=== PATIENT | female | born 1965 | race Caucasian/White ===

== ENCOUNTER 2017-12-17 14:44 | Emergency (ER) | payer OTHER ==
--- NOTE | 2017-12-17 16:48 | US ---
EXAMINATION TYPE: US venous doppler duplex LE LT DATE OF EXAM: 12/17/2017 4:29 PM COMPARISON: NONE CLINICAL HISTORY: Pain. Pt states left leg swelling x 3 days SIDE PERFORMED: Left TECHNIQUE: The lower extremity deep venous system is examined utilizing real time linear array sonog gray with graded compression, doppler sonography and color-flow sonography. VESSELS IMAGED: External Iliac Vein (EIV) Common Femoral Vein Deep Femoral Vein Greater Saphenous Vein * Femoral Vein Popliteal Vein Small Saphenous Vein * Proximal Calf Veins (* superficial vessels) Grayscale, color doppler, spectral doppler imaging performed of the deep veins of the lower extremiti es. There is normal flow, compressibility, vascular waveforms. Left Leg: Negative for DVT IMPRESSION: No evident deep venous thrombosis at or above the left knee, follow-up as indicated.
--- NOTE | 2017-12-17 17:37 | ED ---
General Adult HPI - General Chief complaint: Extremity Problem,Nontraumatic Stated complaint: water retention in legs Time Seen by Provider: 12/17/17 16:51 Source: patient, RN notes reviewed Mode of arrival: ambulatory Limitations: no limitations - History of Present Illness Initial comments: 52-year-old female presents to the emergency department for a chief complaint of leg swelling 3 days. Patient states she noticed the swelling in her left leg which she states is worse than her right leg. Patient does state that she has some swelling in her right leg however. Patient states that she gained 10 pounds since last week. Patient denies any shortness of breath or chest pain. Patient denies any pain in the lower extremities. Patient states she just feels a lot of pressure in her left foot when she stands. Patient denies pain when walking. Patient denies any injuries to the lower extremities. Patient states she has been trying to keep them elevated for the past couple of days and denies standing for long periods. Patient has no other complaints at this time including shortness of breath, chest pain, abdominal pain, nausea or vomiting, headache, or visual changes. - Related Data Home Medications Medication Instructions Recorded Confirmed ALPRAZolam [Xanax] 1 mg PO BID 12/17/17 12/17/17 Dicyclomine [Bentyl] 10 mg PO TID PRN 12/17/17 12/17/17 EPINEPHrine (Auto Inject) [Epipen] 0.3 mg IM ONCE PRN 12/17/17 12/17/17 HYDROcodone/APAP 7.5-325MG [[place] 1 tab PO BID PRN 12/17/17 12/17/17 7.5-325] Allergies Allergy/AdvReac Type Severity Reaction Status Date / Time Iodinated Contrast- Oral and Allergy Anaphylaxis Verified 12/17/17 16:56 IV Dye shellfish derived [Shellfish] Allergy Anaphylaxis Verified 12/17/17 16:56 Review of Systems ROS Statement: Those systems with pertinent positive or pertinent negative responses have been documented in the HPI. ROS Other: All systems not noted in ROS Statement are negative. Past Medical History Past Medical History: Osteoarthritis (OA) Additional Past Medical History / Comment(s): IBS History of Any Multi-Drug Resistant Organisms: None Reported Past Surgical History: Tubal Ligation Past Psychological History: Anxiety Smoking Status: Former smoker Past Alcohol Use History: Occasional Past Drug Use History: None Reported General Exam Limitations: no limitations General appearance: alert, in no apparent distress Head exam: Present: atraumatic, normocephalic, normal inspection Eye exam: Present: normal appearance. Absent: scleral icterus, conjunctival injection ENT exam: Present: normal exam, normal oropharynx, mucous membranes moist, TM's normal bilaterally, normal external ear exam Neck exam: Present: normal inspection, full ROM. Absent: tenderness, meningismus, lymphadenopathy Respiratory exam: Present: normal lung sounds bilaterally. Absent: respiratory distress, wheezes, rales, rhonchi, stridor Cardiovascular Exam: Present: regular rate, normal rhythm, normal heart sounds. Absent: systolic murmur, diastolic murmur, rubs, gallop, clicks GI/Abdominal exam: Present: soft, normal bowel sounds. Absent: distended, tenderness, guarding, rebound, rigid Extremities exam: Present: full ROM (full ROM in lower extremities bilat), normal capillary refill (cap refull < 2 seconds in lower ext bilat, pedal pulses 2+), pedal edema (nonpitting edema present), other (sensation intact in BLE). Absent: tenderness (Tenderness in the left lateral malleolus. no tenderness in lower extremities elsewhere), calf tenderness (neg timmy sign, no calf tenderness or warmth bilat) Back exam: Absent: CVA tenderness (R), CVA tenderness (L) Neurological exam: Present: alert, oriented X3, CN II-XII intact Psychiatric exam: Present: normal affect, normal mood Course Vital Signs 12/17/17 12/17/17 14:51 18:39 Temperature 97.8 F 97.6 F Pulse Rate 99 85 Respiratory 20 18 Rate Blood Pressure 118/79 128/70 O2 Sat by Pulse 100 97 Oximetry EKG Findings - EKG Comments: EKG Findings:: Normal sinus rhythm, ventricular rate 82, SD interval 136, QRS ratio 80, no evidence of ST elevation or depression Medical Decision Making - Medical Decision Making 52-year-old female presents to the emergency department for a chief complaint of bilateral leg swelling, worse in the left leg for 3 days. Patient states she gained 10 pounds in the past week. Patient denies any shortness of breath or chest pain. Patient denies a history of kidney disease. On exam patient does have mild edema in the left ankle without pitting evident. There is also some mild edema in the right ankle somewhat less than the left. Patient is able to walk on lower extremities without any difficulty. Patient denies any pain in the lower extremities whatsoever. Neurovascular intact. CBC and CMP unremarkable. Negative cardiac profile. Troponin less than 0.012. BNP 214. GFR 90 with a creatinine of 0.76. Patients protein is mildly decreased. Ultrasound negative for DVT in the left lower extremity. EKG shows a normal sinus rhythm without evidence of ST elevation or depression. Patient can increase protein intake and follow up with primary care in 1-2 days. Patient aware to return to the emergency Department if she has any worsening symptoms. - Lab Data Result diagrams: 12/17/17 18:06 12/17/17 18:06 Lab Results 12/17/17 12/17/17 12/17/17 Range/Units 18:06 18:06 18:06 WBC 7.6 (3.8-10.6) k/uL RBC 4.59 (3.80-5.40) m/uL Hgb 14.0 (11.4-16.0) gm/dL Hct 44.0 (34.0-46.0) % MCV 95.8 (80.0-100.0) fL MCH 30.5 (25.0-35.0) pg MCHC 31.8 (31.0-37.0) g/dL RDW 13.4 (11.5-15.5) % Plt Count 309 (150-450) k/uL Neutrophils % 59 % Lymphocytes % 28 % Monocytes % 5 % Eosinophils % 6 % Basophils % 1 % Neutrophils # 4.5 (1.3-7.7) k/uL Lymphocytes # 2.1 (1.0-4.8) k/uL Monocytes # 0.4 (0-1.0) k/uL Eosinophils # 0.4 (0-0.7) k/uL Basophils # 0.1 (0-0.2) k/uL PT (9.0-12.0) sec INR (<1.2) APTT (22.0-30.0) sec Sodium 138 (137-145) mmol/L Potassium 4.1 (3.5-5.1) mmol/L Chloride 109 H (98-107) mmol/L Carbon Dioxide 26 (22-30) mmol/L Anion Gap 3 mmol/L BUN 14 (7-17) mg/dL Creatinine 0.76 (0.52-1.04) mg/dL Est GFR (CKD-EPI)AfAm >90 (>60 ml/min/1.73 sqM) Est GFR (CKD-EPI)NonAf 90 (>60 ml/min/1.73 sqM) Glucose 82 (74-99) mg/dL Calcium 8.9 (8.4-10.2) mg/dL Magnesium 2.1 (1.6-2.3) mg/dL Total Bilirubin 0.2 (0.2-1.3) mg/dL AST 24 (14-36) U/L ALT 31 (9-52) U/L Alkaline Phosphatase 63 (38-126) U/L Total Creatine Kinase (30-135) U/L CK-MB (CK-2) (0.0-2.4) ng/mL CK-MB (CK-2) Rel Index Troponin I (0.000-0.034) ng/mL NT-Pro-B Natriuret Pep 214 pg/mL Total Protein 5.4 L (6.3-8.2) g/dL Albumin 3.3 L (3.5-5.0) g/dL Amylase 75 (30-110) U/L Lipase 80 (23-300) U/L 12/17/17 12/17/17 Range/Units 18:06 18:06 WBC (3.8-10.6) k/uL RBC (3.80-5.40) m/uL Hgb (11.4-16.0) gm/dL Hct (34.0-46.0) % MCV (80.0-100.0) fL MCH (25.0-35.0) pg MCHC (31.0-37.0) g/dL RDW (11.5-15.5) % Plt Count (150-450) k/uL Neutrophils % % Lymphocytes % % Monocytes % % Eosinophils % % Basophils % % Neutrophils # (1.3-7.7) k/uL Lymphocytes # (1.0-4.8) k/uL Monocytes # (0-1.0) k/uL Eosinophils # (0-0.7) k/uL Basophils # (0-0.2) k/uL PT 9.3 (9.0-12.0) sec INR 0.9 (<1.2) APTT 20.8 L (22.0-30.0) sec Sodium (137-145) mmol/L Potassium (3.5-5.1) mmol/L Chloride (98-107) mmol/L Carbon Dioxide (22-30) mmol/L Anion Gap mmol/L BUN (7-17) mg/dL Creatinine (0.52-1.04) mg/dL Est GFR (CKD-EPI)AfAm (>60 ml/min/1.73 sqM) Est GFR (CKD-EPI)NonAf (>60 ml/min/1.73 sqM) Glucose (74-99) mg/dL Calcium (8.4-10.2) mg/dL Magnesium (1.6-2.3) mg/dL Total Bilirubin (0.2-1.3) mg/dL AST (14-36) U/L ALT (9-52) U/L Alkaline Phosphatase (38-126) U/L Total Creatine Kinase 42 (30-135) U/L CK-MB (CK-2) 1.1 (0.0-2.4) ng/mL CK-MB (CK-2) Rel Index 2.6 Troponin I <0.012 (0.000-0.034) ng/mL NT-Pro-B Natriuret Pep pg/mL Total Protein (6.3-8.2) g/dL Albumin (3.5-5.0) g/dL Amylase (30-110) U/L Lipase (23-300) U/L Disposition Clinical Impression: Leg edema Disposition: HOME SELF-CARE Condition: Good Instructions: Leg Edema (ED) Additional Instructions: Please follow up with primary care in 1-2 days for this. Please return to the emergency department if you have any worsening symptoms including shortness of breath, chest pain. Is patient prescribed a controlled substance at d/c from ED?: No Referrals: Camilo Bingham MD [Primary Care Provider] - 1-2 days Time of Disposition: 19:01
[2017-12-17 18:23] LABS: Basophils # (A) 0.1 k/uL (0-0.2); Basophils % (A) 1 %; Eosinophils # (A) 0.4 k/uL (0-0.7); Eosinophils % (A) 6 %; Lymphocytes # (A) 2.1 k/uL (1.0-4.8); Lymphocytes % (A) 28 %; MCH 30.5 pg (25.0-35.0); MCHC 31.8 g/dL (31.0-37.0); MCV 95.8 fL (80.0-100.0); Mean Platelet Volume 6.5; Monocytes # (A) 0.4 k/uL (0-1.0); Monocytes % (A) 5 %; Neutrophils # (A) 4.5 k/uL (1.3-7.7); Neutrophils % (A) 59 %; Platelet Count 309 k/uL (150-450); RBC 4.59 m/uL (3.80-5.40); RDW 13.4 % (11.5-15.5); WBC 7.6 k/uL (3.8-10.6)
[2017-12-17 18:34] LABS: ALT 31 U/L (9-52); AST 24 U/L (14-36); Albumin 3.3 g/dL (3.5-5.0); Alkaline Phosphatase 63 U/L (38-126); Amylase 75 U/L (30-110); Anion Gap 3 mmol/L; Blood Urea Nitrogen 14 mg/dL (7-17); Calcium 8.9 mg/dL (8.4-10.2); Carbon Dioxide 26 mmol/L (22-30); Chloride 109 mmol/L (98-107); Glucose 82 mg/dL (74-99); Lipase 80 U/L (23-300); Magnesium 2.1 mg/dL (1.6-2.3); Potassium 4.1 mmol/L (3.5-5.1); Sodium 138 mmol/L (137-145); Total Bilirubin 0.2 mg/dL (0.2-1.3); Total Protein 5.4 g/dL (6.3-8.2)
[2017-12-17 18:38] LABS: INR 0.9 (<1.2); Prothrombin Time 9.3 sec (9.0-12.0)
[2017-12-17 18:40] VITALS: BP 128/70; PULSE 85; RESP 18; TEMP 97.6
[2017-12-17 18:41] LABS: Creatine Kinase 42 U/L (30-135)
[2017-12-17 18:53] LABS: Creatine Kinase MB 1.1 ng/mL (0.0-2.4); Troponin I <0.012 ng/mL (0.000-0.034)
[2017-12-17 18:56] LABS: Partial Thromboplastin Time 20.8 sec (22.0-30.0)
--- NOTE | 2017-12-17 18:59 | XR ---
EXAMINATION: XR chest 2V DATE AND TIME: 12/17/2017 6:23 PM ORDERING PROVIDER: Hernando De La Paz CLINICAL INDICATION: Chest Pain TECHNIQUE: PA and lateral COMPARISON: None. DESCRIPTION: The lungs are clear. The pleural spaces are negative. The cardiac silhouette is not enlarged. The mediastinal and pleural silhouettes are unremarkable. The skeletal structures are intact without focal findings. The soft tissues are unremarkable. IMPRESSION: NO ACUTE PROCESS.
--- NOTE | 2017-12-17 19:07 | XR ---
PROCEDURE: XR ankle complete LT, 3 views DATE AND TIME: 12/17/2017 6:23 PM REFERRING PHYSICIAN: Hernando De La Paz CLINICAL INDICATION: PHH, Pain TECHNIQUE: Department protocol. COMPARISON: None FINDINGS: There is no fracture or malalignment. The soft tissues are unremarkable. IMPRESSION: NO ACUTE PROCESS.
== END 2017-12-17 19:21 | disposition home or self-care (01) ==
LOC: EC 14:44
DX: R60.0 Localized edema (principal); F41.9 Anxiety disorder, unspecified; Z87.891 Personal history of nicotine dependence; Z79.899 Other long term (current) drug therapy; Z91.041 Radiographic dye allergy status; Z91.013 Allergy to seafood
CPT/HCPCS: 36415; 71046; 80053; 82150; 82550; 82553; 83690; 83735; 83880; 84484; 85025; 85610; 85730; 93005; 99284

== ENCOUNTER → 2019-12-22 | Outpatient (CLI) | payer OTHER ==
--- NOTE | 2019-12-22 10:20 | US ---
EXAMINATION TYPE: US abdomen complete DATE OF EXAM: 12/22/2019 COMPARISON: NONE CLINICAL HISTORY: K58.0 Irritable bowel syndrome. Bloating and abdominal pain. EXAM MEASUREMENTS: Liver Length: 13.7 cm Gallbladder Wall: 0.2 cm CBD: 0.5 cm Spleen: 10.0 cm Right Kidney: 10.1 x 4.5 x 4.0 cm Left Kidney: 9.3 x 5.1 x 3.9 cm Severe overlying bowel gas, technically difficult study Pancreas: mostly obscured by overlying bowel gas, portions visualized wnl Liver: wnl Gallbladder: wnl Evidence for sonographic Smith's sign: No CBD: wnl Spleen: wnl as seen, limited views Right Kidney: No hydronephrosis or masses seen, partially obscured by overlying bowel gas Left Kidney: No hydronephrosis or masses seen, partially obscured by overlying bowel gas Upper IVC: wnl Abd Aorta: wnl as seen, partially obscured by overlying bowel gas The visualized liver is homogenous. The intrahepatic portion of the IVC and visualized abdominal aor ta are within normal limits. There is no evidence of cholelithiasis. Common bile duct is unremarkab le. The visualized portions of the pancreas are homogenous. Significant portions obscured by overly ing bowel gas and images saved. The spleen is unremarkable. Kidneys are symmetric and free of hydron ephrosis. No renal lesions are seen. IMPRESSION: Suboptimal study without acute finding identified.
== END | disposition home or self-care (01) ==
LOC: RADUSWWP 09:21
PROVIDERS: ATTEND Family Medicine
DX: K58.0 Irritable bowel syndrome with diarrhea (principal)
CPT/HCPCS: 76700

== ENCOUNTER → 2024-04-25 | Outpatient (CLI) | payer OTHER ==
--- NOTE | 2024-04-25 17:00 | XR ---
EXAMINATION TYPE: XR Hip Complete RT DATE OF EXAM: 04/25/2024 1:55 PM COMPARISON: None. CLINICAL INDICATION: Female, 58 years old with history of M25.551 PAIN IN RIGHT HIP, TECHNIQUE: 2 view(s) obtained. FINDINGS: Femoral head articulates with the acetabulum. No acute fractures evident. Joint space appears preserv ed Follow-up exam can be performed 7-10 days from acute trauma IMPRESSION: 1. No acute osseous abnormality right hip [facility] Shravan Gustafson, , 04/25/2024 4:58 PM
== END | disposition home or self-care (01) ==
LOC: RADXRMAIN 13:37
PROVIDERS: ATTEND Family Medicine
DX: M25.551 Pain in right hip (principal)
CPT/HCPCS: 73502